=== PATIENT | female | born 1985 | race American Indian/Alaskan Native ===

== ENCOUNTER 2017-01-02 21:10 | Emergency (ER) | payer OTHER ==
[2017-01-02 21:32] VITALS: BP 107/65
[2017-01-02 21:50] LABS: CHLORIDE,CL 99 mmol/L (101-111); SODIUM,NA 132 mmol/L (135-145)
--- NOTE | 2017-01-02 21:54 | EDM.PDOC ---
ED HPI ENT - General Stated Complaint: FEVER AND CAN'T SWALLOW Time Seen by Provider: 01/02/17 21:45 Source of Information: Reports: Patient History Limitations: Reports: No limitations - History of Present Illness INITIAL COMMENTS - FREE TEXT/NARRATIVE: This 31 yo female patient reports to the ED with a 2 day history of fevers and a sore throat. The patient reports she has been taking ibuprofen for temporary symptom relief, but has not been seen in the clinic at this time. 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 ED EXAM, ENT - Physical Exam Exam: See Below Exam Limited By: No limitations General Appearance: alert, WD/WN, moderate distress Eye Exam: bilateral eye: EOMI, normal inspection, PERRL Ears: normal external exam, normal canal, hearing grossly normal, normal TMs Nose: normal inspection, normal mucousa, no blood Mouth/Throat: Pharyngeal erythema, Tonsillar erythema, Tonsillar exudates Head: atraumatic, normocephalic Neck: normal inspection, supple, full range of motion, lymphadenopathy (L) Respiratory/Chest: no respiratory distress, lungs clear, normal breath sounds, no accessory muscle use, chest non-tender Cardiovascular: normal peripheral pulses, regular rate, rhythm, no edema, no gallop, no JVD, no murmur, no rub GI/Abdominal: normal bowel sounds, soft, non tender, no organomegaly, no distention, no abnormal bruit, no mass (Female) Exam: Deferred Rectal (Female) Exam: Deferred Back: normal inspection, full range of motion Extremities: normal inspection, normal range of motion, non-tender, no pedal edema, normal capillary refill Neurological: alert, oriented, CN II-XII intact, normal cognition, normal gait, normal reflexes, no motor/sensory deficits Psychiatric: normal affect, normal mood Skin: Warm, Dry, Intact, Normal color, No rash Lymphatic: no adenopathy Course - Vital Signs Last Recorded V/S: Last Vital Signs Temp 36.8 C 01/02/17 21:26 Pulse 75 01/02/17 21:26 Resp 18 01/02/17 21:26 BP 107/65 01/02/17 21:26 Pulse Ox 100 01/02/17 21:26 - Orders/Labs/Meds Labs: Laboratory Tests 01/02/17 01/02/17 Range/Units 21:20 21:20 WBC 15.1 H (5.0-10.0) 10^3/uL RBC 4.50 (4.2-5.4) 10^6/uL Hgb 14.1 (12.0-16.0) g/dL Hct 40.6 (37.0-47.0) % MCV 90.2 (80-100) fL MCH 31.3 (27.0-34.0) pg MCHC 34.7 (33.0-35.0) g/dL Plt Count 168 (150-450) 10^3/uL Neut % (Auto) 86.7 H (42.2-75.2) % Lymph % (Auto) 9.4 L (20.5-50.1) % [place] % (Auto) 3.8 (2-8) % Eos % (Auto) 0.0 L (1.0-3.0) % Baso % (Auto) 0.1 (0.0-1.0) % Sodium 132 L (135-145) mmol/L Potassium 3.5 L (3.6-5.0) mmol/L Chloride 99 L (101-111) mmol/L Carbon Dioxide 22.0 (21.0-31.0) mmol/L Anion Gap 14.5 BUN 6 L (7-18) mg/dL Creatinine 1.0 (0.6-1.3) mg/dL Est Cr Clr Drug Dosing 69.74 mL/min Estimated GFR (MDRD) > 60 BUN/Creatinine Ratio 6.00 Glucose 158 H (74-105) mg/dL Calcium 8.8 (8.4-10.2) mg/dl Total Bilirubin 0.4 (0.2-1.0) mg/dL AST 20 (10-42) IU/L ALT 19 (10-60) IU/L Alkaline Phosphatase 85 (42-121) IU/L Total Protein 7.5 (6.7-8.2) g/dl Albumin 3.8 (3.2-5.5) g/dl Globulin 3.7 Albumin/Globulin Ratio 1.03 Meds: Medications Discontinued Medications Generic Name Dose Route Start Last Admin Trade Name Freq PRN Reason Stop Dose Admin Penicillin G Procaine/Benzathine 1.2 millunits 01/02/17 21:55 01/02/17 22:00 Bicillin C-R 600/600 IM 01/02/17 21:56 1.2 millunits ONETIME ONE Administration Departure - Departure Time of Disposition: 22:07 Disposition: Home, Self-Care 01 Condition: fair Clinical Impression: Strep pharyngitis Instructions: Strep Throat Care Plan Goals: The patient was advised of the examination and lab results during the visit. The patient was given an injection of Bicillin while in the ED. The patient was encouraged to continue to take Tylenol or ibuprofen for temporary symptom relief. If the patient has any additional symptoms or concerns, the patient should follow-up with her primary care provider or return to the emergency department.
[2017-01-02] MEDS ORDERED: Penicillin G Benzathine/Procaine 600-600 1.2 Millunits/2 ML Syringe IM ONE (21:55)
== END 2017-01-02 22:18 | disposition home or self-care (01) ==
LOC: DL.ED 21:10
DX: J02.0 Streptococcal pharyngitis (principal); F17.210 Nicotine dependence, cigarettes, uncomplicated
CPT/HCPCS: 36415; 80053; 85025; 87430; 87804; 96372; 99283; J0558

== ENCOUNTER 2019-11-18 21:29 | Emergency (ER) | payer BC, OTHER ==
[2019-11-18] MEDS ORDERED: Acetaminophen/oxyCODONE 325-5 MG Tab PO ONE ×2 (21:30→23:38)
[2019-11-18] MEDS ORDERED: Ibuprofen 600 MG Tab PO ONE (22:08)
[2019-11-18 22:29] VITALS: BP 127/76; PULSE 87
--- NOTE | 2019-11-18 23:44 | EDM.PDOC ---
ED HPI GENERAL MEDICAL PROBLEM - General Chief Complaint: Lower Extremity Injury/Pain Stated Complaint: BROKEN ANKLE Time Seen by Provider: 11/18/19 22:30 Source of Information: Reports: Patient, RN History Limitations: Reports: No Limitations - History of Present Illness INITIAL COMMENTS - FREE TEXT/NARRATIVE: ED per s/c with c/o pain to outer right foot, states walking out of [place] and slipped, Heavy metal door caught outside of foot. Severe pain with attempt to bear weight. Pain extends to toes. No other injury. 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 placenta previa Neurological History: Reports: Seizure, Other (See Below) Other Neuro History: seizure due to preeclampsia Psychiatric History: Reports: Anxiety - Infectious Disease History Infectious Disease History: Reports: None Social & Family History - Family History Family Medical History: Noncontributory - Tobacco Use Smoking Status *Q: Current Every Day Smoker Years of Tobacco use: 6 Packs/Tins Daily: 0.4 - Caffeine Use Caffeine Use: Reports: Soda - Recreational Drug Use Recreational Drug Use: No Review of Systems - Review of Systems Review Of Systems: Comprehensive ROS is negative, except as noted in HPI. ED EXAM, GENERAL - Physical Exam Exam: See Below Exam Limited By: No Limitations General Appearance: Moderate Distress Eye Exam: Bilateral Eye: EOMI Ears: Normal External Exam, Hearing Grossly Normal Nose: Normal Inspection Throat/Mouth: Normal Inspection Head: Atraumatic, Normocephalic Neck: Normal Inspection, Full Range of Motion Respiratory/Chest: No Respiratory Distress, Normal Breath Sounds Cardiovascular: Normal Peripheral Pulses, Regular Rate, Rhythm Extremities: Other (right lateral foot swoolen painful ecchymosis, right 3rd and 4th toes mild bruising no gross deformity) Psychiatric: Normal Affect Skin Exam: Warm, Dry, Intact Course - Vital Signs Last Recorded V/S: Last Vital Signs Temp 98.4 F 11/18/19 22:23 Pulse 87 11/18/19 22:23 Resp 20 11/18/19 22:23 BP 127/76 11/18/19 22:23 Pulse Ox 99 11/18/19 22:23 - Orders/Labs/Meds Meds: Medications Discontinued Medications Generic Name Dose Route Start Last Admin Trade Name Christal PRN Reason Stop Dose Admin Ibuprofen 600 mg 11/18/19 22:08 11/18/19 22:12 Motrin PO 11/18/19 22:09 600 mg ONETIME ONE Administration Oxycodone/Acetaminophen 1 tab 11/18/19 23:38 11/18/19 23:52 Percocet 325-5 Mg PO 11/18/19 23:39 1 tab ONETIME ONE Administration Oxycodone/Acetaminophen Confirm 11/18/19 23:46 11/18/19 23:51 Percocet 325-5 Mg Administered 11/18/19 23:47 Not Given Dose 2 tab .ROUTE .STK-MED ONE - Radiology Interpretation Free Text/Narrative:: No acute fracture right foot, see report Departure - Departure Time of Disposition: 23:55 Disposition: Home, Self-Care 01 Condition: Good Clinical Impression: Contusion of foot including toes Qualifiers: Encounter type: initial encounter Laterality: right Qualified Code(s): S90.31XA - Contusion of right foot, initial encounter - Discharge Information *PRESCRIPTION DRUG MONITORING PROGRAM REVIEWED*: Yes *COPY OF PRESCRIPTION DRUG MONITORING REPORT IN PATIENT BRIDGET: Yes Instructions: Crutch Use, Adult, [id number], Contusion, [id number] Forms: ED Department Discharge Additional Instructions: crutches, weight bearing as tolerated alternate tylenol and ibuprofen every 4 hours as needed for pain percocet 5/325 one every 6 hours as needed for severe pain #2 follow up next week if continued pain swelling ice elevate mark wrap Sepsis Event Note - Evaluation Sepsis Screening Result: No Definite Risk - Focused Exam Vital Signs: Vital Signs Temp Pulse Resp BP Pulse Ox 11/18/19 22:23 98.4 F 87 20 127/76 99 Date Exam was Performed: 11/19/19 Time Exam was Performed: 05:52
[2019-11-18] MEDS ORDERED: Acetaminophen/oxyCODONE 325-5 MG Tab ONE (23:46)
== END 2019-11-18 23:56 | disposition home or self-care (01) ==
LOC: DL.ED 21:29
DX: S90.31XA Contusion of right foot, initial encounter (principal); S90.121A Contusion of right lesser toe(s) without damage to nail, initial encounter; F17.210 Nicotine dependence, cigarettes, uncomplicated; F41.9 Anxiety disorder, unspecified; Z79.899 Other long term (current) drug therapy; W22.8XXA Striking against or struck by other objects, initial encounter
CPT/HCPCS: 73630; 99283; A9270

== ENCOUNTER 2020-09-10 23:43 | Emergency (ER) | payer BC, OTHER ==
[2020-09-11 00:04] VITALS: BP 143/87; PULSE 124
--- NOTE | 2020-09-11 00:24 | EDM.PDOC ---
ED HPI GENERAL MEDICAL PROBLEM - General Chief Complaint: Neuro Symptoms/Deficits Stated Complaint: AMBULANCE Time Seen by Provider: 09/11/20 00:10 Source of Information: Reports: Patient History Limitations: Reports: No Limitations - History of Present Illness INITIAL COMMENTS - FREE TEXT/NARRATIVE: This 34 yo female patient was brought to the ED by [facility] due to a seizure. The patient reports she has been feeling increased anxiety over the past 3-4 days. The patient reports she has had a seizure in the past due to increased anxiety. The patient reports she is not on any medications for the seizures. 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 placenta previa Neurological History: Reports: Seizure, Other (See Below) Other Neuro History: seizure due to preeclampsia Psychiatric History: Reports: Anxiety - Infectious Disease History Infectious Disease History: Reports: None Social & Family History - Family History Family Medical History: No Pertinent Family History - Tobacco Use Tobacco Use Status *Q: Current Every Day Tobacco User Years of Tobacco use: 15 Packs/Tins Daily: 0.5 - Caffeine Use Caffeine Use: Reports: Coffee, Soda ED ROS GENERAL - Review of Systems Review Of Systems: Comprehensive ROS is negative, except as noted in HPI. - Physical Exam Exam: See Below Exam Limited By: No Limitations General Appearance: Alert, WD/WN, No Apparent Distress Eye Exam: Bilateral Eye: EOMI, Normal Inspection, PERRL Ears: Normal External Exam, Normal Canal, Hearing Grossly Normal, Normal TMs Nose: Normal Inspection, Normal Mucosa, No Blood Throat/Mouth: Normal Inspection, Normal Lips, Normal Teeth, Normal Gums, Normal Oropharynx, Normal Voice, No Airway Compromise Head Exam: Atraumatic, Normocephalic Neck: Normal Inspection, Supple, Non-Tender, Full Range of Motion Respiratory/Chest: No Respiratory Distress, Lungs Clear, Normal Breath Sounds, No Accessory Muscle Use, Chest Non-Tender Cardiovascular: Normal Peripheral Pulses, Regular Rate, Rhythm, No Edema, No Gallop, No JVD, No Murmur, No Rub GI/Abdominal: Normal Bowel Sounds, Soft, Non-Tender, No Organomegaly, No Distention, No Abnormal Bruit, No Mass (Female) Exam: Deferred Rectal (Female) Exam: Deferred Neuro Exam (Abbreviated): Alert, Oriented, CN II-XII Intact, Normal Cognition, Normal Gait, Normal Reflexes, No Motor/Sensory Deficits Back Exam: Normal Inspection, Full Range of Motion, NT Extremities: Normal Inspection, Normal Range of Motion, Non-Tender, No Pedal Edema, Normal Capillary Refill Psychiatric: Normal Affect, Normal Mood Skin Exam: Warm, Dry, Intact, Normal Color, No Rash Course - Vital Signs Last Recorded V/S: Last Vital Signs Temp 36.8 C 09/10/20 23:43 Pulse 124 H 09/10/20 23:43 Resp 32 H 09/10/20 23:43 BP 143/87 H 09/10/20 23:43 Pulse Ox 97 09/10/20 23:43 - Orders/Labs/Meds Orders: Active Orders 24 hr Category Date Time Status CULTURE URINE [RM] Stat Lab 09/10/20 23:54 Received Labs: Laboratory Tests 09/10/20 09/10/20 09/11/20 Range/Units 23:54 23:54 00:36 WBC 7.9 (5.0-10.0) 10^3/uL RBC 4.33 (4.2-5.4) 10^6/uL Hgb 13.7 (12.0-16.0) g/dL Hct 38.7 (37.0-47.0) % MCV 89.4 (80-100) fL MCH 31.6 (27.0-34.0) pg MCHC 35.4 H (33.0-35.0) g/dL Plt Count 176 (150-450) 10^3/uL Neut % (Auto) 72.0 (42.2-75.2) % Lymph % (Auto) 20.3 L (20.5-50.1) % [place] % (Auto) 7.3 (2-8) % Eos % (Auto) 0.1 L (1.0-3.0) % Baso % (Auto) 0.3 (0.0-1.0) % Sodium (138-146) mmol/L Potassium (3.5-4.9) mmol/L Chloride (98-109) mmol/L Carbon Dioxide (21-32) mmol/L Anion Gap (7-13) mEq/L BUN (7-18) mg/dL Creatinine (0.55-1.02) mg/dL Est Cr Clr Drug Dosing mL/min Estimated GFR (MDRD) BUN/Creatinine Ratio (No establ ref range) Glucose (74-99) mg/dL Calcium (8.5-10.1) mg/dL Total Bilirubin (0.2-1.0) mg/dL AST (15-37) U/L ALT (14-59) U/L Alkaline Phosphatase (46-116) U/L Total Protein (6.4-8.2) g/dL Albumin (3.4-5.0) g/dL Globulin Albumin/Globulin Ratio Urine Color Light yellow (YELLOW) Urine Appearance Slightly cloudy (CLEAR) Urine pH 6.0 (5.0-9.0) Ur Specific [place] 1.020 (1.005-1.030) Urine Protein Negative (NEGATIVE) Urine Glucose (UA) Negative (NEGATIVE) Urine Ketones Negative (NEGATIVE) Urine Occult Blood Trace-intact H (NEGATIVE) Urine Nitrite Negative (NEGATIVE) Urine Bilirubin Negative (NEGATIVE) Urine Urobilinogen 0.2 (0.2-1.0) mg/dL Ur Leukocyte Esterase Moderate H (NEGATIVE) Urine RBC 0-5 /HPF Urine WBC 5-10 H (0-5/HPF) /HPF Ur Epithelial Cells Few (NOT SEEN) /HPF Amorphous Sediment Few (NOT SEEN) /HPF Urine Bacteria Moderate H (0-FEW/HPF) /HPF Urine Mucus Few H (NOT SEEN) /LPF Urine HCG, Qual Negative 09/11/20 Range/Units 00:36 WBC (5.0-10.0) 10^3/uL RBC (4.2-5.4) 10^6/uL Hgb (12.0-16.0) g/dL Hct (37.0-47.0) % MCV (80-100) fL MCH (27.0-34.0) pg MCHC (33.0-35.0) g/dL Plt Count (150-450) 10^3/uL Neut % (Auto) (42.2-75.2) % Lymph % (Auto) (20.5-50.1) % [place] % (Auto) (2-8) % Eos % (Auto) (1.0-3.0) % Baso % (Auto) (0.0-1.0) % Sodium 136 L (138-146) mmol/L Potassium 4.3 (3.5-4.9) mmol/L Chloride 104 (98-109) mmol/L Carbon Dioxide 21 (21-32) mmol/L Anion Gap 15.3 H (7-13) mEq/L BUN 14 (7-18) mg/dL Creatinine 1.03 H (0.55-1.02) mg/dL Est Cr Clr Drug Dosing 68.60 mL/min Estimated GFR (MDRD) > 60 BUN/Creatinine Ratio 13.6 (No establ ref range) Glucose 98 (74-99) mg/dL Calcium 8.9 (8.5-10.1) mg/dL Total Bilirubin 0.2 (0.2-1.0) mg/dL AST 14 L (15-37) U/L ALT 29 (14-59) U/L Alkaline Phosphatase 81 (46-116) U/L Total Protein 7.3 (6.4-8.2) g/dL Albumin 3.8 (3.4-5.0) g/dL Globulin 3.5 Albumin/Globulin Ratio 1.1 Urine Color (YELLOW) Urine Appearance (CLEAR) Urine pH (5.0-9.0) Ur Specific [place] (1.005-1.030) Urine Protein (NEGATIVE) Urine Glucose (UA) (NEGATIVE) Urine Ketones (NEGATIVE) Urine Occult Blood (NEGATIVE) Urine Nitrite (NEGATIVE) Urine Bilirubin (NEGATIVE) Urine Urobilinogen (0.2-1.0) mg/dL Ur Leukocyte Esterase (NEGATIVE) Urine RBC /HPF Urine WBC (0-5/HPF) /HPF Ur Epithelial Cells (NOT SEEN) /HPF Amorphous Sediment (NOT SEEN) /HPF Urine Bacteria (0-FEW/HPF) /HPF Urine Mucus (NOT SEEN) /LPF Urine HCG, Qual Departure - Departure Time of Disposition: 01:31 Disposition: Home, Self-Care 01 Condition: Fair Clinical Impression: Seizure, Anxiety - Discharge Information *PRESCRIPTION DRUG MONITORING PROGRAM REVIEWED*: Not Applicable *COPY OF PRESCRIPTION DRUG MONITORING REPORT IN PATIENT BRIDGET: Not Applicable Instructions: Seizure, Adult, [id number] Forms: ED Department Discharge Care Plan Goals: The patient was advised of the examination, lab and CT results during the visit. The patient was encouraged to rest and relax over the next 48 hours. The patient was also encouraged to start taking medications for anxiety as prescribed. If the patient has any additional symptoms or concerns, the patient should either return to the emergency department or visit her primary care facility. Sepsis Event Note (ED) - Evaluation Sepsis Screening Result: No Definite Risk - Focused Exam Vital Signs: Vital Signs Temp Pulse Resp BP Pulse Ox 09/10/20 23:43 36.8 C 124 H 32 H 143/87 H 97 - My Orders Last 24 Hours: My Active Orders 09/10/20 23:54 CULTURE URINE [RM] Stat - Assessment/Plan Last 24 Hours: My Active Orders 09/10/20 23:54 CULTURE URINE [RM] Stat
[2020-09-11 01:08] LABS: ANION GAP 15.3 mEq/L (7-13); CHLORIDE,CL 104 mmol/L (98-109); SODIUM,NA 136 mmol/L (138-146)
--- NOTE | 2020-09-11 01:26 | CT ---
PROCEDURE INFORMATION: Exam: CT Head Without Contrast Exam date and time: 09/11/2020 1:07 AM Age: 34 years old Clinical indication: Other: Seizure TECHNIQUE: Imaging protocol: Computed tomography of the head without contrast. Radiation optimization: All CT scans at this facility use at least one of these dose optimization techniques: automated exposure control; mA and/or kV adjustment per patient size (includes targeted exams where dose is matched to clinical indication); or iterative reconstruction. COMPARISON: CT HEAD 11/26/2011 1:44 PM FINDINGS: Brain: Normal. No hemorrhage. Unremarkable white matter. No mass effect. Cerebral ventricles: No ventriculomegaly. Bones/joints: Unremarkable. No acute fracture. Paranasal sinuses: Visualized sinuses are unremarkable. No fluid levels. Mastoid air cells: Visualized mastoid air cells are well aerated. Soft tissues: Unremarkable. IMPRESSION: No acute intracranial abnormality.
== END 2020-09-11 01:43 | disposition home or self-care (01) ==
LOC: DL.ED 23:43
DX: R56.9 Unspecified convulsions (principal); F41.9 Anxiety disorder, unspecified; F17.210 Nicotine dependence, cigarettes, uncomplicated; Z79.899 Other long term (current) drug therapy
CPT/HCPCS: 36415; 70450; 80053; 81001; 81025; 85025; 87086; 99285-25

== ENCOUNTER 2020-12-21 13:08 | Emergency (ER) | payer BC, OTHER ==
[2020-12-21 13:21] VITALS: BP 126/88; PULSE 78
--- NOTE | 2020-12-21 13:30 | CR ---
PROCEDURE INFORMATION: Exam: XR Left Ankle Exam date and time: 12/21/2020 1:17 PM Age: 35 years old Clinical indication: Injury or trauma; Fall; Swelling (edema); Ankle; Left; Additional info: Fall off of curb onto left ankle; Pain; Swelling TECHNIQUE: Imaging protocol: XR Left ankle. Views: 3 or more views. COMPARISON: No relevant prior studies available. FINDINGS: Bones/joints: Normal. Soft tissues: Soft tissue swelling about the anterior and lateral left ankle. IMPRESSION: Soft tissue swelling. No fracture identified.
--- NOTE | 2020-12-21 13:57 | EDM.PDOC ---
Scribed by Pennie Wells 12/21/20 [id number] for Nancy Burciaga NP ED HPI GENERAL MEDICAL PROBLEM - General Chief Complaint: Lower Extremity Injury/Pain Stated Complaint: LEFT ANKLE INJURY TWISTED/WALKED OFF SIDEWALK Time Seen by Provider: 12/21/20 13:18 Source of Information: Reports: Patient, RN, RN Notes Reviewed History Limitations: Reports: No Limitations - History of Present Illness INITIAL COMMENTS - FREE TEXT/NARRATIVE: Patient presents to ER via personal vehicle for complaint of left ankle pain and swelling. The patient reports injury to the left ankle last night while walking. She notes that she stepped off a curve and internally rotated her ankle; she did hear a popping noise. She attests to plantar and dorsiflexion but feels that these movements are limited due to pain. She does report numbness distal to the injury. The patient states she has applied ice to the affected area, but has not taken any medications for the pain. She denies history of injury to this extremity previously. 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 placenta previa Neurological History: Reports: Seizure, Other (See Below) Other Neuro History: seizure due to preeclampsia Psychiatric History: Reports: Anxiety - Infectious Disease History Infectious Disease History: Reports: None Social & Family History - Family History Family Medical History: No Pertinent Family History - Caffeine Use Caffeine Use: Reports: Soda Review of Systems - Review of Systems Review Of Systems: Comprehensive ROS is negative, except as noted in HPI. ED EXAM, GENERAL - Physical Exam Exam: See Below Exam Limited By: No Limitations General Appearance: Alert, WD/WN, No Apparent Distress Eye Exam: Bilateral Eye: EOMI, Normal Inspection, PERRL Ears: Normal External Exam, Normal Canal, Hearing Grossly Normal, Normal TMs Nose: Normal Inspection, Normal Mucosa, No Blood Throat/Mouth: Normal Inspection, Normal Lips, Normal Teeth, Normal Gums, Normal Oropharynx, Normal Voice, No Airway Compromise Head: Atraumatic, Normocephalic Neck: Normal Inspection, Supple, Non-Tender, Full Range of Motion Respiratory/Chest: No Respiratory Distress, Lungs Clear, Normal Breath Sounds, No Accessory Muscle Use, Chest Non-Tender Cardiovascular: Normal Peripheral Pulses, Regular Rate, Rhythm, No Edema, No Gallop, No JVD, No Murmur, No Rub Peripheral Pulses: 2+: Radial (L), Radial (R), Dorsalis Pedis (L), Dorsalis Pedis (R) GI/Abdominal: Normal Bowel Sounds, Soft, Non-Tender, No Organomegaly, No Distention, No Abnormal Bruit, No Mass (Female) Exam: Deferred Rectal (Female) Exam: Deferred Back Exam: Normal Inspection, Full Range of Motion, NT Extremities: No Pedal Edema, Normal Capillary Refill, Joint Swelling (left lateral ankle. ), Leg Pain (left lateral ankle increased with dorsiflexion and plantar flexion. ), Limited Range of Motion (left ankle. ), Increased Warmth (left ankle) Neurological: Alert, Oriented, CN II-XII Intact, Normal Cognition, Normal Gait, Normal Reflexes, No Motor/Sensory Deficits Psychiatric: Normal Affect, Normal Mood Skin Exam: Warm, Dry, Intact, Ecchymosis (left lateral ankle), Erythema (left lateral ankle). No: Mottled, Pallor, Petechiae, Wound/Incision Course - Vital Signs Last Recorded V/S: Last Vital Signs Temp 97.5 F 12/21/20 13:18 Pulse 78 12/21/20 13:18 Resp 18 12/21/20 13:18 BP 126/88 12/21/20 13:18 Pulse Ox 100 12/21/20 13:18 - Radiology Interpretation Free Text/Narrative:: [facility] [place] [facility] Final Radiology Report Call: [phone] assistance Online chat: [email or web address] Name: ASHLEY FLEMING Age: 35Years F Date: 12/21/2020 SSN: -- : [id number] Study: CR ANKLE MIN 3V LT Requesting Physician: Nancy Burciaga Images: 3 Addl Studies: Provided Clinical History: Fall off of curb onto left ankle; Pain; Swelling Contrast: Contrast Medium: Contrast Amount: Contrast Method: CONFIDENTIALITY STATEMENT This report is intended only for use by the referring physician, and only in accordance with law. If you received this in error, call [phone]. Page 1 of 1 PROCEDURE INFORMATION: Exam: XR Left Ankle Exam date and time: 12/21/2020 1:17 PM Age: 35 years old Clinical indication: Injury or trauma; Fall; Swelling (edema); Ankle; Left; Additional info: Fall off of curb onto left ankle; Pain; Swelling TECHNIQUE: Imaging protocol: XR Left ankle. Views: 3 or more views. COMPARISON: No relevant prior studies available. FINDINGS: Bones/joints: Normal. Soft tissues: Soft tissue swelling about the anterior and lateral left ankle. IMPRESSION: Soft tissue swelling. No fracture identified. Thank you for allowing us to participate in the care of your patient. Dictated and Authenticated by: Joann Bernal MD 12/21/2020 1:30 PM Central Time ([place] & [place]) - Re-Assessments/Exams Free Text/Narrative Re-Assessment/Exam: 12/21/20 Left ankle xray unremarkable for acute processes; no evidence of fracture or dislocation. Findings of examination and imaging reviewed with patient. Supportive cares, as well as red flag signs and symptoms which would warrant revaluation, discussed with patient. Patient verbalized understanding and agreement with the plan of care. Departure - Departure Time of Disposition: 13:42 Disposition: Home, Self-Care 01 Condition: Good Clinical Impression: Left ankle sprain Qualifiers: Encounter type: initial encounter Involved ligament of ankle: unspecified ligament Qualified Code(s): S93.402A - Sprain of unspecified ligament of left ankle, initial encounter - Discharge Information *PRESCRIPTION DRUG MONITORING PROGRAM REVIEWED*: Not Applicable *COPY OF PRESCRIPTION DRUG MONITORING REPORT IN PATIENT BRIDGET: Not Applicable Instructions: Ankle Sprain, [id number] Forms: ED Department Discharge Additional Instructions: 1.) You may take ibuprofen (Advil/Motrin) 800mg every six hours, as pain and swelling persists. You may also take acetaminophen (Tylenol) 1000mg every six hours, as pain persists. You may stagger these medications so you are receiving a dose every three hours. After three days, reduce the ibuprofen back down to 400mg 2.) Apply ice to affected area, as swelling persists; 20 minutes every hour. 3.) Follow up with your primary care provider should pain and swelling does not improve in 2-3 days as this may warrant further evaluation. Sepsis Event Note (ED) - Focused Exam Vital Signs: Vital Signs Temp Pulse Resp BP Pulse Ox 12/21/20 13:18 97.5 F 78 18 126/88 100 I have read and agree with the documentation that has been completed regarding this visit. By signing this record, I attest that the documentation was completed in my physical presence and is an accurate record of the encounter.
== END 2020-12-21 13:49 | disposition home or self-care (01) ==
LOC: DL.ED 13:08
DX: S93.402A Sprain of unspecified ligament of left ankle, initial encounter (principal); R56.9 Unspecified convulsions; Z79.899 Other long term (current) drug therapy; X50.1XXA Overexertion from prolonged static or awkward postures, initial encounter; Y93.01 Activity, walking, marching and hiking
CPT/HCPCS: 73610-LT; 99283; 99283-25

== ENCOUNTER 2022-12-01 15:36 | Emergency (ER) | payer OTHER, BC ==
[2022-12-01 15:59] VITALS: BP 117/80; PULSE 77
== END 2022-12-01 17:02 | disposition home or self-care (01) ==
LOC: DL.ED 15:36
DX: S50.02XA Contusion of left elbow, initial encounter (principal); M54.6 Pain in thoracic spine; Z72.0 Tobacco use; W01.0XXA Fall on same level from slipping, tripping and stumbling without subsequent striking against object, initial encounter; Y99.0 Civilian activity done for income or pay
CPT/HCPCS: 72072; 73080-LT; 99283

== ENCOUNTER 2025-02-26 01:22 | Emergency (ER) | payer BC, OTHER ==
[2025-02-26 01:37] VITALS: BP 108/63; PULSE 107
[2025-02-26] MEDS ORDERED: Sodium Chloride 0.9% 10 ML Syringe FLUSH PRN (02:14)
[2025-02-26 02:32] LABS: BASOPHILS PERCENT AUTO 0.1 % (0.0-1.0); HEMATOCRIT 38.3 % (37.0-47.0); HEMOGLOBIN 12.9 g/dL (12.0-16.0); LYMPHOCYTES PERCENT AUTO 8.4 % (20.5-50.1); MEAN CORPUSCULAR HEMOGLOBIN 30.7 pg (27.0-34.0); MEAN CORPUSCULAR HGB CONC 33.7 g/dL (33.0-35.0); MEAN CORPUSCULAR VOLUME 91.2 fL (80-100); MONOCYTES PERCENT AUTO 6.5 % (2-8); PLATELET COUNT,PLT 255 10^3/uL (150-450); WHITE BLOOD CELL COUNT,WBC 15.8 10^3/uL (5.0-10.0)
[2025-02-26 02:38] LABS: APPEARANCE,URINE SLIGHTLY CLOUDY (CLEAR); BILIRUBIN,URINE NEGATIVE (NEGATIVE); COLOR,URINE YELLOW (YELLOW); GLUCOSE,URINE NEGATIVE (NEGATIVE); KETONES,URINE NEGATIVE (NEGATIVE); LEUKOCYTE ESTERASE,URINE NEGATIVE (NEGATIVE); NITRITE,URINE NEGATIVE (NEGATIVE); OCCULT BLOOD,URINE NEGATIVE (NEGATIVE); PH,URINE 5.5 (5.0-9.0); PROTEIN,URINE NEGATIVE (NEGATIVE); UROBILINOGEN,URINE 0.2 mg/dL (0.2-1.0)
[2025-02-26 02:41] LABS: AMPHETAMINES,URINE NEGATIVE (NEGATIVE); BARBITURATES,URINE NEGATIVE (NEGATIVE); BENZODIAZEPINE,URINE NEGATIVE (NEGATIVE); MDMA (ECSTASY), URINE NEGATIVE (NEGATIVE); METHADONE,URINE NEGATIVE (NEGATIVE); METHAMPHETAMINES,URINE NEGATIVE (NEGATIVE); OPIATES,URINE NEGATIVE (NEGATIVE); OXYCODONE,URINE NEGATIVE (NEGATIVE); PHENCYCLIDINE,URINE NEGATIVE (NEGATIVE); TCA,URINE NEGATIVE (NEGATIVE)
[2025-02-26 02:52] LABS: ALANINE AMINOTRANSFERASE,ALT 27 U/L (14-59); ALBUMIN 3.3 g/dL (3.4-5.0); ALKALINE PHOSPHATASE 106 U/L (46-116); ANION GAP 7.5 mEq/L (7-13); ASPARTATE AMNIOTRANSFERASE,AST 12 U/L (15-37); BILIRUBIN TOTAL 0.2 mg/dL (0.2-1.0); BLOOD UREA NITROGEN,BUN 11 mg/dL (7-18); BUN/CREATININE RATIO 10.2 (No establ ref range); CARBON DIOXIDE,CO2 25 mmol/L (21-32); CHLORIDE,CL 102 mmol/L (98-107); CREATININE 1.08 mg/dL (0.55-1.02); GLUCOSE RANDOM 149 mg/dL (70-99); MAGNESIUM 2.5 mg/dL (1.8-2.4); POTASSIUM,K 3.5 mmol/L (3.5-5.1); PROTEIN TOTAL,TP 7.2 g/dL (6.4-8.2); SODIUM,NA 131 mmol/L (136-145)
[2025-02-26 02:55] LABS: A/G RATIO 0.85; ESTIMATED GFR 67 mL/min (>=60); ETHANOL BLOOD MEDICAL < 3 mg/dL (0)
[2025-03-02 05:46] LABS: LAMOTROGINE 6.2 ug/mL (3.0-15.0)
== END 2025-02-26 03:13 | disposition home or self-care (01) ==
LOC: DL.ED 01:22
DX: G40.909 Epilepsy, unspecified, not intractable, without status epilepticus (principal); F17.210 Nicotine dependence, cigarettes, uncomplicated; Z79.899 Other long term (current) drug therapy; Z90.710 Acquired absence of both cervix and uterus
CPT/HCPCS: 36415; 80053; 80175; 80305-QW; 80307; 81003; 83735; 85025; 99284